=== PATIENT | male | born 1990 | race Caucasian/White ===

== ENCOUNTER 2020-08-04 08:32 | Emergency (ER) | payer MEDICAID ==
[~2020-08-04] VITALS: Ht 172.7 cm; Wt 80.0 kg
[2020-08-04 09:58] LABS: CHLORIDE 109 mEq/L (98-107)
[2020-08-04 10:03] LABS: ETHANOL BLOOD < 10 mg/dL
[2020-08-04 10:21] LABS: BASOPHILS % 0.7 % (0.0-2.0); EOSINOPHILS % 2.7 % (0.0-5.0); HEMATOCRIT. 41.1 % (42.0-52.0); LYMPHOCYTES % 22.7 % (20.0-50.0); MEAN CORPUSCULAR HEMOGLOBIN 29.2 pg (28.0-32.0); MEAN CORPUSCULAR VOLUME 85.7 fL (80.0-94.0); MEAN PLATELET VOLUME 7.4 fl (7.4-10.4); MONOCYTES % 12.2 % (2.0-8.0); NEUTROPHILS % 61.7 % (40.0-76.0); PLATELET 241 x1000/uL (130-400); RED BLOOD CELL COUNT 4.79 mill/uL (4.7-6.1); RED CELL DISTRIBUTION WIDTH 14.1 % (11.6-14.6)
[2020-08-04 11:01] LABS: CLARITY URINE CLEAR (CLEAR); COLOR URINE YELLOW (YELLOW); KETONES URINE NEGATIVE (NEGATIVE); LEUKOCYTE ESTERASE URINE NEGATIVE (NEGATIVE); NITRITE URINE NEGATIVE (NEGATIVE); OCCULT BLOOD URINE NEGATIVE (NEGATIVE); PROTEIN URINE NEGATIVE (NEGATIVE); SPECIFIC GRAVITY URINE 1.007 (1.005-1.030); UROBILINOGEN URINE 0.2 E.U./dL (0.2-1.0)
[2020-08-04] MEDS ORDERED: QUETIAPINE FUMARATE 50MG TABLET PO SCH (11:30)
[2020-08-04 11:40] LABS: *AMPHETAMINES SCREEN URINE NEGATIVE (NEGATIVE); *BENZODIAZEPINES SCREEN URINE NEGATIVE (NEGATIVE); *COCAINE SCREEN URINE NEGATIVE (NEGATIVE)
[2020-08-04 11:41] LABS: CANNABINOID URINE SCREEN PRESUMTIVE POSITIVE (NEGATIVE); METHADONE URINE SCREEN NEGATIVE (NEGATIVE); OPIATES URINE SCREEN NEGATIVE (NEGATIVE)
[2020-08-04 11:43] LABS: *BARBITURATES SCREEN URINE NEGATIVE (NEGATIVE)
[2020-08-04 12:00] LABS: PHENCYCLIDINE URINE SCREEN NEGATIVE (NEGATIVE)
[2020-08-04] MEDS: SERTRALINE HCL 50MG TABLET PO SCH (12:20)
[2020-08-05 07:30] VITALS: BP 124/70
[2020-08-05] MEDS: SERTRALINE HCL 50MG TABLET PO SCH (09:00)
[2020-08-05] MEDS ORDERED: SERTRALINE HCL 50MG TABLET PO SCH (10:30)
[2020-08-05] MEDS ORDERED: QUETIAPINE FUMARATE 50MG TABLET PO SCH (10:30)
== END 2020-08-05 12:48 ==
LOC: ER 08:32
DX: Z03.818 Encounter for observation for suspected exposure to other biological agents ruled out (principal); F33.9 Major depressive disorder, recurrent, unspecified; Z59.0 Homelessness; Z75.1 Person awaiting admission to adequate facility elsewhere
CPT/HCPCS: 36415; 80053; 80305; 80320; 81003; 85025; 87426; 93005; 99285; Z7610; G0480